=== PATIENT | female | born 1930 | race Caucasian/White ===

== ENCOUNTER 2017-12-28 21:31 | Emergency (ER) | payer MEDICARE, OTHER ==
[~2017-12-28] VITALS: Ht 160 cm; Wt 80.9 kg
[~2017-12-28 21:31] MED LIST: ASPI-1071 PO; CHOL2000 PO; CYAN100070 PO; FENO160T13 PO; FOLI0.4T2 PO; HYDR12.5 PO; LOSA50TA3 PO; METF500T PO; OXYB5TAB11 PO
[2017-12-28] MEDS ORDERED: hyDRALAzine 10mg tablet PO SCH (23:30)
[2017-12-28 23:51] VITALS: BP 174/62
== END 2017-12-28 23:52 | disposition home or self-care (01) ==
LOC: ER 21:32
DX: I10 Essential (primary) hypertension (principal); Z79.82 Long term (current) use of aspirin; Z79.899 Other long term (current) drug therapy
CPT/HCPCS: 99284